=== PATIENT | female | born 1975 | race Caucasian/White ===

== ENCOUNTER 2019-11-30 13:21 | Emergency (ER) | payer SELFPAY ==
[2019-11-30] MEDS ORDERED: diphenhydrAMINE 50 MG/ML 1 ML VIAL IVP STA (14:05)
[2019-11-30] MEDS ORDERED: SODIUM CHLORIDE 0.9% 1,000 ML IV ONE (14:05)
[2019-11-30] MEDS ORDERED: MORPHINE SULFATE 4 MG/ML SYRINGE IV STA (14:05)
[2019-11-30] MEDS ORDERED: METOCLOPRAMIDE 5 MG/ML 2 ML VIAL IVP STA (14:05)
--- NOTE | 2019-11-30 14:25 | ED ---
General Adult HPI - General Chief complaint: Headache Stated complaint: Migraine Time Seen by Provider: 11/30/19 13:39 Source: patient, RN notes reviewed, old records reviewed Mode of arrival: ambulatory Limitations: no limitations - History of Present Illness Initial comments: 45-year-old female patient past history of a migraine headache continue chief c omplaint of migraine headache which has been waxing and waning for the last month. Patient reports that the headache is on her right frontal region. She reports she has some photophobia however denies any changes in vision. She states that it feels similar to her normal migraine headaches however normally that resolved with Imitrex or Toradol not has not worked. Denies attempting or any other red flag symptoms. Systemic: Pt denies fatigue, fever/chills, rash. Pt denies weakness, night sweats, weight loss. Neuro: Pt denies visual disturbances, syncope or pre-syncope. HEENT: Pt denies ocular discharge or irritation, otalgia, rhinorrhea, pharyngitis or notable lymphadenopathy. Cardiopulmonary: Pt denies chest pain, SOB, heart palpitations, dyspnea on exertion. Abdominal/GI: Pt denies abdominal pain, n/v/d. : Pt denies dysuria, burning w/ urination, frequency/urgency. Denies new onset urinary or bowel incontinence. MSK: Pt denies myalgia, loss of strength or function in extremities. Neuro: Pt denies new onset weakness, paresthesias. - Related Data Allergies Allergy/AdvReac Type Severity Reaction Status Date / Time No Known Allergies Allergy Verified 11/30/19 13:36 Review of Systems ROS Statement: Those systems with pertinent positive or pertinent negative responses have been documented in the HPI. ROS Other: All systems not noted in ROS Statement are negative. Past Medical History Additional Past Medical History / Comment(s): Migraines History of Any Multi-Drug Resistant Organisms: None Reported Additional Past Surgical History / Comment(s): left eye surgery Past Psychological History: No Psychological Hx Reported Smoking Status: Never smoker Past Alcohol Use History: None Reported Past Drug Use History: None Reported General Exam - General Exam Comments Initial Comments: Constitutional: NAD, AOX3, Pt has pleasant affect. HEENT: NC/AT, trachea midline, neck supple, no lymphadenopathy. Posterior pharynx non erythematous, without exudates. External ears appear normal, without discharge. Mucous membranes moist. Eyes PERRLA, EOM intact. There is no scleral icterus. No pallor noted. Cardiopulmonary: RRR, no murmurs, rubs or gallops, no JVD noted. Lungs CTAB in anterior and posterior neil. No peripheral edema. Abdominal exam: Abdomen soft and non-distended. Abdomen non-tender to palpation in all 4 quadrants. Bowel sounds active in LLQ. No hepatosplenomegaly. No ecchymosis Neuro: CN II-XII intact. No nuchal rigidity. No raccon eyes, no corrales sign, no hemotympanum. NIH 0. MSK: No posterior calf tenderness bilaterally, homans sign negative bilaterally. Posterior tibialis and radial pulse +2 bilaterally. Sensation intact in upper and lower extremities. Full active ROM in upper and lower extremities, 5/5 stregnth. Limitations: no limitations Course Vital Signs 11/30/19 13:33 Temperature 98.7 F Pulse Rate 85 Respiratory 16 Rate Blood Pressure 148/86 O2 Sat by Pulse 98 Oximetry Medical Decision Making - Medical Decision Making 44-year-old female patient past history of migraine headaches for CU chief complaint migraine headache that has been ongoing waxing waning for the last month. Patient will tender stable, afebrile. Physical exam didn't display acute pathology. Neurologic exam is intact. NIH 0. CT of brain without contrast displayed no acute intracranial hemorrhages or mass effect or midline shift. Nonspecific white matter low density. Patient headache has resolved and is feeling much improved. Patient will be discharged to follow-up with her primary care provider and will be given a neurology follow-up. Case discussed with Dr. Elizabeth. Disposition Clinical Impression: Migraine headache Disposition: HOME SELF-CARE Condition: Stable Instructions (If sedation given, give patient instructions): Acute Headache (ED) Additional Instructions: Follow-up with primary care provider and neurologist tomorrow. Return to ER if condition worsens in any way. Is patient prescribed a controlled substance at d/c from ED?: No Referrals: Todd Urrutia MD [Primary Care Provider] - 1-2 days Abdulkadir Keller MD [REFERRING] - 1-2 days Karlos Sawyer DO [STAFF PHYSICIAN] - 1-2 days
--- NOTE | 2019-11-30 14:41 | CT ---
EXAMINATION TYPE: CT brain wo con DATE OF EXAM: 11/30/2019 COMPARISON: None HISTORY: Headache x [address] DLP: 1090.4 mGycm. Automated Exposure Control for Dose Reduction was Utilized. TECHNIQUE: CT scan of the head is performed without contrast. FINDINGS: There is no acute intracranial hemorrhage, mass effect, or midline shift identified. The ventricles and sulci are within normal limits in size. The globes are intact and the visualized sin uses are clear. Paratracheal white matter shows patchy low attenuation. IMPRESSION: No acute intracranial hemorrhage, mass effect, or midline shift is seen. Nonspecific whi te matter low density, MRI may be of benefit.
--- NOTE | 2019-11-30 15:43 | ED ---
Disposition Clinical Impression: Migraine headache Disposition: HOME SELF-CARE Condition: Stable Instructions (If sedation given, give patient instructions): Acute Headache (ED) Additional Instructions: Follow-up with primary care provider and neurologist tomorrow. Return to ER if condition worsens in any way. Is patient prescribed a controlled substance at d/c from ED?: No Referrals: Abdulkadir Keller MD [REFERRING] - 1-2 days Todd Urrutia MD [Primary Care Provider] - 1-2 days Karlos Sawyer DO [STAFF PHYSICIAN] - 1-2 days Nick Villegas MD [STAFF PHYSICIAN] - 1-2 days
[2019-11-30 15:48] VITALS: TEMP 98.7
[2019-11-30 15:57] VITALS: BP 145/90; PULSE 69; RESP 18
== END 2019-11-30 15:55 | disposition home or self-care (01) ==
LOC: EC 13:21
DX: G43.909 Migraine, unspecified, not intractable, without status migrainosus (principal)
CPT/HCPCS: 70450; 99284; 96374; 96375 ×2; 96361; J2270; J1200; J2765